=== PATIENT | male | born 1960 | race Caucasian/White ===

== ENCOUNTER 2021-04-22 11:50 | Outpatient (CLI) | payer BC | END 2021-04-22 11:51 | disposition home or self-care (01) | LOC: CSHRAD 11:50 | PROVIDERS: ATTEND Internal Medicine Rheumatology | DX: M25.551 Pain in right hip (principal); M47.9 Spondylosis, unspecified; M16.0 Bilateral primary osteoarthritis of hip; Z98.890 Other specified postprocedural states; M47.816 Spondylosis without myelopathy or radiculopathy, lumbar region | CPT/HCPCS: 72110 ==